=== PATIENT | female | born 1980 | race Hispanic/Latino ===

== ENCOUNTER 2018-05-12 06:48 | Emergency (ER) | payer SELFPAY ==
[~2018-05-12] VITALS: Ht 152.9 cm; Wt 93.0 kg
[~2018-05-12 06:48] MED LIST: ADVIL200 MG PO; ALOCRIL OU; AMOXICILLIN500 M2 PO; AMOXICILLIN500 MG PO; AMOXICILLIN875 MG OR; ANTI-FUNGAL12 TOP; BIAXIN500 MG PO; CIPRODEX1 ML AD; CIPROFLOXACN500 MG PO; DIFLUCAN150 MG PO; FLEXERIL5 M1 PO; LORTAB5 OR; METRONIDAZOL500 MG PO; NAPROSYN500 MG PO; NO MEDS; NYSTOP100000 MG TOP; PREVACID30 M3 PO; PRILOSEC40 MG PO
[2018-05-12 07:31] LABS: URINE BILIRUBIN - DIPSTICK NEGATIVE (NEGATIVE); URINE BLOOD DIPSTICK MODERATE (NEGATIVE); URINE COLOR YELLOW; URINE GLUCOSE - DIPSTICK NEGATIVE (NEGATIVE); URINE KETONE NEGATIVE (NEGATIVE); URINE LEUK ESTERASE SMALL (NEGATIVE); URINE NITRITE - DIPSTICK NEGATIVE (Negative); URINE PROTEIN - DIPSTICK NEGATIVE (NEG-TRACE); URINE UROBILINOGEN - DIPSTICK 0.2 E.U./dL (0.2)
[2018-05-12 07:42] LABS: URINE BACTERIA RARE hpf; URINE SQUAMOUS EPITHELIAL CELL FEW EPI/hpf (0-FEW); URINE WBC >100 WBC/hpf (0-5)
[2018-05-12] MEDS ORDERED: CEPHALEXIN500 M1 PO (07:50)
[2018-05-12 07:52] VITALS: BP 142/93
[2018-05-12] MEDS ORDERED: PYRIDIUM200 MG PO (08:05)
== END 2018-05-12 08:08 | disposition home or self-care (01) | DRG 690 ==
LOC: ED 06:48
PROVIDERS: Emergency Medicine
DX: N39.0 Urinary tract infection, site not specified (principal); R30.0 Dysuria

== ENCOUNTER 2019-06-06 16:42 | Emergency (ER) | payer SELFPAY ==
[~2019-06-06 16:42] MED LIST changes: +CEPHALEXIN500 M1 PO; +PYRIDIUM200 MG PO
[2019-06-06 17:04] VITALS: BP 146/90
== END 2019-06-06 18:12 | disposition left against medical advice (07) | DRG 951 ==
LOC: ED 16:42 → LWOBS 18:11
DX: Z53.21 Procedure and treatment not carried out due to patient leaving prior to being seen by health care provider (principal)

== ENCOUNTER 2022-04-23 11:17 | Emergency (ER) | payer OTHER ==
[2022-04-23] VITALS (10 sets, daily range): BP systolic 121–142; BP diastolic 64–94
[~2022-04-23] VITALS: Ht 157.5 cm; Wt 96.3 kg
[2022-04-23 12:16] LABS: HEMATOCRIT 39.7 % (37.0-47.0); HEMOGLOBIN 13.4 g/dl (12.0-16.0); IMMATURE GRANULOCYTES 0.1 % (0.0-5.0); MEAN CELL VOLUME 93.4 fL CALC (80.0-100.0); MEAN CORPUSCULAR HGB 31.5 pG CALC (26.0-32.0); MEAN CORPUSCULAR HGB CONC 33.8 g/dL CAL (32.0-36.0); NEUT# 5.48 thou/uL (2.00-7.15); RED BLOOD COUNT 4.25 mill/uL (4.20-5.60)
[2022-04-23 12:26] LABS: ALBUMIN 3.9 g/dL (3.2-5.0); ALKALINE PHOSPHATASE 109 u/l (38-126); ANION GAP 9 (6-22 (CALC)); BILIRUBIN, TOTAL 0.4 mg/dL (0.0-1.4); BUN 13 mg/dL (7-17); BUN/CREATININE RATIO 24 (12-20 (CALC)); CARBON DIOXIDE 28 mmol/l (22-30); CHLORIDE 105 mmol/l (95-108); CREATININE 0.5 mg/dL (0.5-1.0); GFR FOR AFR.AMER. > 60 ML/MIN (>=60 (CALC)); GFR OTHER RACES > 60 ML/MIN (>=60 (CALC)); POTASSIUM 3.7 mmol/l (3.5-5.1); SODIUM 137 mmol/l (137-146); TOTAL PROTEIN 7.5 g/dL (6.3-8.2)
[2022-04-23 12:42] LABS: SGOT/AST 39 u/l (14-36)
[2022-04-23 13:04] LABS: URINE BILIRUBIN - DIPSTICK NEGATIVE (NEGATIVE); URINE BLOOD DIPSTICK LARGE (NEGATIVE); URINE COLOR YELLOW; URINE GLUCOSE - DIPSTICK NEGATIVE (NEGATIVE); URINE KETONE NEGATIVE (NEGATIVE); URINE LEUK ESTERASE NEGATIVE (NEGATIVE); URINE PROTEIN - DIPSTICK NEGATIVE (NEG-TRACE); URINE SPECIFIC GRAVITY 1.015; URINE UROBILINOGEN - DIPSTICK 0.2 E.U./dL (0.2)
[2022-04-23 13:21] LABS: URINE NITRITE - DIPSTICK NEGATIVE (Negative)
[2022-04-23 13:22] LABS: URINE EPITHELIAL CELLS FEW EPI/hpf (0-FEW); URINE RBC 25-50 RBC/hpf (0-5)
== END 2022-04-23 14:20 | disposition home or self-care (01) | DRG 103 ==
LOC: ED 11:17
PROVIDERS: Family Medicine
DX: R51.9 Headache, unspecified (principal)